=== PATIENT | male | born 1960 | race African-American/Black ===

== ENCOUNTER 2020-01-30 09:27 | Emergency (ER) | payer SELFPAY ==
[2020-01-30] MEDS ORDERED: traMADol HCl 50 MG TAB ONE (09:49)
--- NOTE | 2020-01-30 10:04 | RAD ---
RADIOGRAPH RIGHT KNEE 3VIEWS: DATE: 01/30/2020 HISTORY: 59-year-old male with acute traumatic right knee pain from fall FINDINGS: There is no dislocation. No fracture is identified. Increased attenuation in the suprapatellar region . IMPRESSION: 1. No fracture. 2. Small suprapatellar joint effusion versus small suprapatellar hemarthrosis.
== END 2020-01-30 10:51 | disposition home or self-care (01) ==
LOC: ERS 09:27
DX: S81.851A Open bite, right lower leg, initial encounter (principal); S61.213A Laceration without foreign body of left middle finger without damage to nail, initial encounter; S83.91XA Sprain of unspecified site of right knee, initial encounter; W54.0XXA Bitten by dog, initial encounter; W19.XXXA Unspecified fall, initial encounter
CPT/HCPCS: 99283